=== PATIENT | male | born 1970 | race Caucasian/White ===

== ENCOUNTER 2024-07-06 09:26 | Outpatient (OUT) | payer OTHER, SELFPAY ==
[2024-07-06 11:00] LABS: Albumin Level 3.4 g/dL (3.4-5.0); Anion Gap 14.3; BUN Creatinine Ratio 13.3; Calcium 9.3 mg/dL (8.5-10.1); Chloride 103 mmol/L (98-107); Chol HDL Ratio 4.6; Cholesterol 171 mg/dL (<=200); Estimated GFR (African America >60 (>=60 mL/min/1.73m^2); Estimated GFR (Non-African Ame 55 (>=60 mL/min/1.73m^2); Glucose 138 mg/dL (74-106); HDL Cholesterol 37 mg/dL (40-60); Phosphorus 3.9 mg/dL (2.6-4.7); Potassium 4.3 mmol/L (3.5-5.1); Sodium 140 mmol/L (136-145); Triglycerides 189 mg/dL (<=150); VLDL CHOLESTEROL 37.8 mg/dL
[2024-07-08 01:38] LABS: Creatinine Urine Random 105.37 mg/dL (20.00-300.00); Microalbum Creatinine Ratio Ur 14.2 mg/g (0.0-29.9); Microalbumin Urine Random 1.5 mg/dL (<=30.0)
== END 2024-07-06 09:27 | disposition home or self-care (01) ==
LOC: LAB 09:31
PROVIDERS: Visit Provider Internal Medicine
DX: E11.9 Type 2 diabetes mellitus without complications (principal); Z71.3 Dietary counseling and surveillance; E55.9 Vitamin D deficiency, unspecified; E78.2 Mixed hyperlipidemia
CPT/HCPCS: 36415; 80061; 80069; 82043; 82306; 82570